=== PATIENT | male | born 1980 | race Caucasian/White ===

== ENCOUNTER 2020-07-14 15:31 | Emergency (ER) | payer OTHER, SELFPAY ==
[2020-07-14 15:38] VITALS: BP 150/87; PULSE 100; RESP 20; TEMP 36.1; O2SAT 98
--- NOTE | 2020-07-14 15:50 | ED.SKABFB ---
HPI - Skin/Abscess/Foreign Bdy General Chief complaint: Skin/Abscess/Foreign Body Stated complaint: Sore on left trunk area Time Seen by Provider: 07/14/20 15:50 Source: patient and RN notes reviewed History of Present Illness HPI narrative: Patient is a 39-year-old male who presents the urgent care with complaints of a sore to the left abdomen. Patient states that he noticed it approximately 4 days ago and it started out as a small pimple. Patient states that he has been squeezing on the area and using Neosporin and Epson salt. Patient states he has gotten bloody drainage from the area. Denies of any fever, chills, nausea, vomiting. No other acute complaints. No acute distress noted. Patient aware of the plan of care. Some parts of this dictation were generated by voice recognition software and may contain typographical and/or grammatical inaccuracies. Related Data Allergies Allergy/AdvReac Type Severity Reaction Status Date / Time No Known Allergies Allergy Verified 07/14/20 15:48 Review of Systems Review of Systems: Narrative: CONSTITUTIONAL: Denies fever, chills, or sweats. EYES: Denies visual changes, redness, or discharge. ENT: Denies rhinorrhea, congestion, sore throat, or otalgia. CARDIOVASCULAR: Denies chest pain, palpitations, or edema. RESPIRATORY: Denies cough or dyspnea. GASTROINTESTINAL: Denies abdominal pain, nausea, vomiting, or diarrhea. GENITOURINARY: Denies dysuria or hematuria. SKIN: Reports of an infected pimple to the left upper abdomen MUSCULOSKELETAL: Denies back pain, joint pain, or myalgia. NEUROLOGIC: Denies headache, numbness, or weakness. All other systems reviewed are negative, except as documented in HPI. PMFSH Comments At the time of my signature, I reviewed and agree with the nursing past medical, surgical, social, and family history. There is no relevant family history pertinent to the patient complaint. Exam Narrative: Exam Narrative: GENERAL: This is a well-nourished, well-developed patient, in no apparent distress. HEAD: normocephalic, atraumatic. EYES: PERRL. Sclera clear/white. Vision is grossly intact. EARS: External ears normal NOSE: External nose normal with no obvious nasal discharge, nares without redness, no rhinorrhea. THROAT: Mucous membranes moist NECK: Neck supple SKIN: Abscess to the left upper abdomen/trunk?12 x 7 cm area of redness with a center measuring 2 x 1.5 cm with notable areas that have been draining NEURO: awake, alert, and oriented to person, place and time. There were no obvious focal neurologic abnormalities. EXTREMITIES: No clubbing, cyanosis, or edema. Course Vital Signs Vital signs: Vital Signs Temperature 97 F L 07/14/20 15:38 Pulse Rate 100 07/14/20 15:38 Respiratory Rate 20 07/14/20 15:38 Blood Pressure 150/87 H 07/14/20 15:38 Pulse Oximetry 98 07/14/20 15:38 Temperature 97 F L 07/14/20 15:38 Pulse Rate 100 07/14/20 15:38 Respiratory Rate 07/14/20 15:38 Blood Pressure 150/87 H 07/14/20 15:38 Pulse Oximetry 98 07/14/20 15:38 Reviewed?patient is informed that they may have pre-hypertension or hypertension based on a blood pressure reading in the department. I recommend the patient call the primary care provider listed on their discharge instructions or a physician of their choice this week to arrange follow-up for further evaluation of possible pre-hypertension or hypertension. MDM - Skin/Abscess/Foreign Bdy MDM Narrative Medical decision making narrative: Advised the patient does not stop squeezing on the area. Do not use Epson salt or printed on the area. Clean the area with plain Dial soap and water. Use prescription cream to the affected area 2-3 times a day. Advised patient to complete oral antibiotic regimen as prescribed. Make sure to eat and drink with the medication. Increase her water intake. If you develop any increase in redness associated with fevers, nausea, vomiting-go to the emergency room. Fo
== END 2020-07-14 16:10 | disposition home or self-care (01) ==
PROVIDERS: Emergency Provider Nurse Practitioner Family
DX: L02.211 Cutaneous abscess of abdominal wall (principal)
CPT/HCPCS: 99213; G0463